=== PATIENT | male | born 1930 | race Caucasian/White ===

== ENCOUNTER → 2017-04-29 | Outpatient (CLI) | payer OTHER | LOC: FLAB 10:55 | PROVIDERS: ATTEND Nurse Practitioner Family | DX: T82.118A Breakdown (mechanical) of other cardiac electronic device, initial encounter (principal) ==

== ENCOUNTER 2017-11-08 18:05 | Emergency (ER) | payer OTHER ==
--- NOTE | 2017-11-08 18:26 | EDPHY ---
H & P Stated Complaint: hematuria Time Seen by Provider: 11/08/17 18:26 HPI/ROS: CHIEF COMPLAINT: Painless hematuria HISTORY OF PRESENT ILLNESS: The patient has a history of atrial fibrillation and is anticoagulated with warfarin. He presents to the ED with painless hematuria. The patient denies any dysuria or sensation of urinary retention. Patient denies any painful bowel movements. The patient does have a history of BPH. Patient denies history of prior genitourinary problems aside from BPH. The patient denies any fever, weight loss, cough or chest pain. REVIEW OF SYSTEMS: A comprehensive 10 point review of systems is otherwise negative aside from elements mentioned in the history of present illness. Source: Patient Exam Limitations: No limitations - Personal History Current Tetanus/Diphtheria Vaccine: Yes Current Tetanus Diphtheria and Acellular Pertussis (TDAP): Yes - Medical/Surgical History Hx Asthma: No Hx Chronic Respiratory Disease: No Hx Diabetes: No Hx Cardiac Disease: Yes Hx Renal Disease: No Hx Cirrhosis: No Hx Alcoholism: No Hx HIV/AIDS: No Hx Splenectomy or Spleen Trauma: No Other PMH: Afib, hypothyroid, BPH, - Social History Smoking Status: Former smoker - Physical Exam Exam: General Appearance: Alert, no distress Eyes: Pupils equal and round no pallor or injection ENT, Mouth: Mucous membranes moist Respiratory: There are no retractions, lungs are clear to auscultation Cardiovascular: Regular rate and rhythm Gastrointestinal: Minimal suprapubic tenderness to palpation, no abdominal fullness Neurological: 5/5 strength all 4 extremities Skin: Warm and dry, no rashes Musculoskeletal: Neck is supple nontender Extremities: symmetrical, full range of motion Psychiatric: Patient is oriented X 3, there is no agitation Constitutional: Initial Vital Signs Temperature (C) 36.5 C 11/08/17 18:11 Heart Rate 72 11/08/17 18:11 Respiratory Rate 16 11/08/17 18:11 Blood Pressure 106/88 H 11/08/17 18:11 O2 Sat (%) 97 11/08/17 18:11 O2 Delivery Mode Room Air Allergies/Adverse Reactions: No Known Allergies Allergy (Unverified 11/08/17 18:08) Home Medications: Medication Instructions Recorded Amiodarone HCl 11/08/17 Atorvastatin Calcium 11/08/17 Cephalexin [Keflex] 500 mg PO QID #28 cap 11/08/17 Digoxin 11/08/17 Famotidine 11/08/17 Fish Oil 1,000 mg Softgel 11/08/17 Levothyroxine 11/08/17 Metoprolol Tartrate 11/08/17 Multivitamins 11/08/17 Peppermint Oil 11/08/17 Spironolactone 11/08/17 Vitamin B12 11/08/17 Warfarin Sodium 11/08/17 Medical Decision Making ED Course/Re-evaluation: The patient presents to the ED for painless hematuria. The patient is currently anticoagulated for atrial fibrillation. The patient does have a history of BPH. He denies any fever dysuria. He had no clinical evidence of pyelonephritis on exam. Given his age he was taken for CT scan with contrast. Urinalysis does demonstrate hematuria, mild pyuria and bacteriuria. A urine culture is pending. I will have the patient hold his Coumadin for the next several days then resume his regular dose. The patient will be started on Keflex for possible cystitis. He is advised to have his INR checked in the next week. He will contact the emergency department in 2 days to check the results of his urine culture. He is discharged home with instructions to return to the ED for any urinary retention. CT scan demonstrates no obvious genitourinary abnormality aside from large prostate. Differential Diagnosis: Differential diagnosis considered includes prostatitis, cystitis, nephrolithiasis, genitourinary malignancy - Data Points Laboratory Results: Laboratory Results 11/08/17 18:50 11/08/17 18:50 11/08/17 11/08/17 11/08/17 18:50 18:50 18:50 WBC 5.99 10^3/uL 10^3/uL (3.80-9.50) RBC 4.65 10^6/uL 10^6/uL (4.40-6.38) Hgb 14.8 g/dL g/dL (13.7-17.5) Hct 43.6 % % (40.0-51.0) MCV 93.8 fL fL (81.5-99.8) MCH 31.8 pg pg (27.9-34.1) MCHC 33.9 g/dL g/dL (32.4-36.7) RDW 14.4 % % (11.5-15.2) Plt Count 122 10^3/uL L 10^3/uL (150-400) MPV 10.6 fL fL (8.7-11.7) Neut % (Auto) 59.8 % % (39.3-74.2) Lymph % (Auto) 29.0 % % (15.0-45.0) Baldwin % (Auto) 7.7 % % (4.5-13.0) Eos % (Auto) 2.5 % % (0.6-7.6) Baso % (Auto) 0.3 % % (0.3-1.7) Nucleat RBC Rel Count 0.0 % % (0.0-0.2) Absolute Neuts (auto) 3.58 10^3/uL 10^3/uL (1.70-6.50) Absolute Lymphs (auto) 1.74 10^3/uL 10^3/uL (1.00-3.00) Absolute Monos (auto) 0.46 10^3/uL 10^3/uL (0.30-0.80) Absolute Eos (auto) 0.15 10^3/uL 10^3/uL (0.03-0.40) Absolute Basos (auto) 0.02 10^3/uL 10^3/uL (0.02-0.10) Absolute Nucleated RBC 0.00 10^3/uL 10^3/uL (0-0.01) Immature Gran % 0.7 % % (0.0-1.1) Immature Gran # 0.04 10^3/uL 10^3/uL (0.00-0.10) PT 27.7 SEC H SEC (12.0-15.0) INR 2.59 H (0.83-1.16) Sodium 136 mEq/L mEq/L (135-145) Potassium 3.8 mEq/L mEq/L (3.3-5.0) Chloride 107 mEq/L mEq/L (97-110) Carbon Dioxide 25 mEq/l mEq/l (22-31) Anion Gap 4 mEq/L L mEq/L (8-16) BUN 23 mg/dL mg/dL (7-23) Creatinine 1.1 mg/dL mg/dL (0.7-1.3) Estimated GFR > 60 Glucose 99 mg/dL mg/dL (70-100) Calcium 9.2 mg/dL mg/dL (8.5-10.4) Urine Color Urine Appearance Urine pH Ur Specific Melrose Urine Protein Urine Ketones Urine Blood Urine Nitrate Urine Bilirubin Urine Urobilinogen Ur Leukocyte Esterase Urine RBC Urine WBC Ur Epithelial Cells Urine Bacteria Urine Mucus Urine Glucose 11/08/17 18:14 WBC RBC Hgb Hct MCV MCH MCHC RDW Plt Count MPV Neut % (Auto) Lymph % (Auto) Baldwin % (Auto) Eos % (Auto) Baso % (Auto) Nucleat RBC Rel Count Absolute Neuts (auto) Absolute Lymphs (auto) Absolute Monos (auto) Absolute Eos (auto) Absolute Basos (auto) Absolute Nucleated RBC Immature Gran % Immature Gran # PT INR Sodium Potassium Chloride Carbon Dioxide Anion Gap BUN Creatinine Estimated GFR Glucose Calcium Urine Color YELLOW Urine Appearance CLEAR Urine pH 5.0 (5.0-7.5) Ur Specific Melrose 1.008 (1.002-1.030) Urine Protein NEGATIVE (NEGATIVE) Urine Ketones NEGATIVE (NEGATIVE) Urine Blood 3+ H (NEGATIVE) Urine Nitrate NEGATIVE (NEGATIVE) Urine Bilirubin NEGATIVE (NEGATIVE) Urine Urobilinogen NEGATIVE EU EU (0.2-1.0) Ur Leukocyte Esterase NEGATIVE (NEGATIVE) Urine RBC 50-182 /hpf H /hpf (0-3) Urine WBC 5-10 /hpf H /hpf (0-3) Ur Epithelial Cells NONE SEEN /lpf /lpf (NONE-1+) Urine Bacteria 1+ /hpf H /hpf (NONE SEEN) Urine Mucus TRACE /lpf /lpf (NONE-1+) Urine Glucose NEGATIVE (NEGATIVE) Departure - Departure Disposition: Home, Routine, Self-Care Clinical Impression: Cystitis Condition: Good Instructions: Urinary Tract Infection in Men (ED) Additional Instructions: 1. Take antibiotics as directed for next 7 days. 2. Please have your INR checked at the end of next week as antibiotic therapy can affect Coumadin levels. 3. Please contact the emergency department in 2 days to check the results of your urine culture and verify are on appropriate antibiotic. 4. Return to the ED for any inability to urinate, increasing pain, fever or vomiting. 5. Please follow up with your urologist for any ongoing blood in your urine. Referrals: Kristel Ramey MD [Primary Care Provider] - As per Instructions Prescriptions: Cephalexin [Keflex] 500 mg PO QID #28 cap
[2017-11-08 19:14] LABS: INR 2.59 (0.83-1.16); PROTIME(PATIENT) 27.7 SEC (12.0-15.0)
[2017-11-08 19:34] LABS: PLATELET COUNT 122 10^3/uL (150-400)
[2017-11-08] MEDS ORDERED: IOPAMIDOL (ISOVUE-300) 100 ML BTL ONE (19:37)
[2017-11-08] MEDS ORDERED: CEPHALEXIN 500 MG CAP PO ONE (20:42)
[2017-11-08 20:55] VITALS: BP 106/66
== END 2017-11-08 21:14 | disposition home or self-care (01) ==
DX: N30.91 Cystitis, unspecified with hematuria (principal); B96.89 Other specified bacterial agents as the cause of diseases classified elsewhere; Z79.01 Long term (current) use of anticoagulants; Z87.891 Personal history of nicotine dependence
CPT/HCPCS: 74177; 99285; Q9967

== ENCOUNTER → 2017-11-24 | Outpatient (CLI) | payer OTHER ==
--- NOTE | 2017-11-24 15:31 | ECHO ---
[email or web address] [address] [address] Main: [phone] Fax: [email or web address] Echocardiogram Name: ANTHONY MILLER MR#: [id number] Study Date: 11/24/2017 Study Time: 01:50 PM Date of : 1930 Age: 87 year(s) Height: 177.8 cm (70 in.) Weight: 72.58 kg (160 lb.) BSA: 1.9 m2 Gender: Male Examination: Echo Indication: Atrial Fibrillation, Pacer Image Quality: Contrast: Requested by: Soren Carter BP: / Heart Rate: Rhythm: Indication: Atrial Fibrillation, Pacer Procedure Staff Imaging Administrator: Deloris Kumar RDCS Reading Physician: Alvino Lorenzo MD Requesting Provider: Conclusions: Normal size left ventricle. No LV hypertrophy. Normal global systolic LV function. The ejection fraction is estimated to be 60-65 %. Diastolic dysfunction is present. . There is a pacemaker lead noted in the right ventricle. Moderate mitral valve regurgitation is present. Mild aortic cusp calcification is noted. There is no aortic valve regurgitation. The tricuspid valve is normal in appearance and function. Moderate tricuspid regurgitation is present. The pulmonary artery pressure is normal. Trivial pulmonic valve regurgitation. No previous available Measurements: Chambers Valvular Assessment AV/MV Valvular Assessment TV/PV Normal Normal Normal Name Value Range Name Value Range Name Value Range Ao Niesha (MM): 3.3 cm (2.2 cm-3.7 AV Vmax: 1.14 m/s (1 m/s-1.7 TR Vmax: 2.52 mm/s ( - ) cm) m/s) TR PGmax: 25 mmHg ( - ) IVSd (2D): 0.9 cm (0.6 cm-1.1 AV meanP mmHg ( - ) syst. PAP: 30 mmHg ( - ) cm) GRISEL (VTI): 2.0 cm ( - ) LVDd (2D): 3.8 cm (4.2 cm-5.9 MV E Vmax: 0.80 m/s ( - ) cm) MV A Vmax: 0.24 m/s ( - ) LVDs (2D): 2.7 cm (2.1 cm-4 MV E/A: 3.33 ( - ) cm) MV meanP mmHg ( - ) LVPWd (2D): 0.9 cm (0.6 cm-1 cm) MVA (Vmax): 1.8 m/s ( - ) LVOTd 2.0 cm 2.0 cm mm Patient: ANTHONY MILLER Study Date: 11/24/2017 Page 1 of 2 01:50 PM LVEF (MOD4): 69 % (>=55 %) EF Range: 60-65 % Continued Measurements: Chambers Valvular Assessment AV/MV Valvular Assessment TV/PV Name Value Name Value Name Value LADs: 4.5 cm MV Annulus: 3.2 cm CVP (est.): 5 mmHg LADs Lon.1 cm MV E' Septal: 0.04 m/s LA Area: 27.4 cm2 MV E/E' Septal: 21.10 MV E/E' Lateral: 20.50 MV VTI: 23.20 cm MR ERO: 0.120 cm2 MR PISA radius: 5 mm MR Reg. Volume: 19 ml MR Reg. Fraction: 10 % Additional Vessels Name Value Ao Ascendin.5 cm Findings: Left Ventricle: Normal size left ventricle. No LV hypertrophy. Normal global systolic LV function. The ejection fraction is estimated to be 60-65 %. Diastolic dysfunction is present. . LV septal motion consistent with conduction abnormality.. Right Ventricle: Normal size right ventricle. There is a pacemaker lead noted in the right ventricle. Left Atrium: The left atrium is moderately dilated. Right Atrium: The right atrium is normal in size. Mitral Valve: Mild mitral annular calcification. Moderate mitral valve regurgitation is present. Aortic Valve: The aortic valve is tri-leaflet. Mild aortic cusp calcification is noted. There is no aortic valve regurgitation. Tricuspid Valve: The tricuspid valve is normal in appearance and function. Moderate tricuspid regurgitation is present. The pulmonary artery pressure is normal. Pulmonic Valve: Pulmonary valve not well visualized. Trivial pulmonic valve regurgitation. Aorta: The aorta is normal. Pericardium: No pericardial effusion. (No Signature Object) Patient: ANTHONY MILLER Study Date: 11/24/2017 Page 2 of 2 01:50 PM [id number]
== END ==
LOC: FCP 13:38
PROVIDERS: ATTEND Nurse Practitioner Family
DX: I48.91 Unspecified atrial fibrillation (principal); I49.5 Sick sinus syndrome; R06.09 Other forms of dyspnea; I34.0 Nonrheumatic mitral (valve) insufficiency

== ENCOUNTER 2018-10-06 05:24 | Day surgery (SDC) | payer OTHER | END 2018-10-06 12:24 | disposition home or self-care (01) | LOC: FSGY 05:24 ==